=== PATIENT | male | born 1965 | race African-American/Black ===

== ENCOUNTER 2016-09-27 20:24 | Emergency (ER) | payer MEDICAID, SELFPAY ==
[~2016-09-27] VITALS: Ht 177.8 cm; Wt 100.2 kg
[2016-09-27 20:25] VITALS: BP 126/85
== END 2016-09-27 22:06 ==
LOC: ED 22:00
DX: R06.02 Shortness of breath (principal)
CPT/HCPCS: 93005

== ENCOUNTER 2017-04-17 20:23 | Emergency (ER) | payer MEDICAID ==
[~2017-04-17] VITALS: Ht 177.8 cm; Wt 105.5 kg
[2017-04-17 20:33] VITALS: BP 152/99
== END 2017-04-17 23:37 | disposition home or self-care (01) ==
LOC: ED 22:44
DX: K08.89 Other specified disorders of teeth and supporting structures (principal)
CPT/HCPCS: 70486; 99284

== ENCOUNTER 2017-04-18 00:18 | Emergency (ER) | payer MEDICAID ==
[~2017-04-18] VITALS: Ht 170.2 cm; Wt 103.5 kg
[2017-04-18 00:20] VITALS: BP 157/94
[2017-04-18] MEDS ORDERED: KETOROLAC 30 MG/1 ML IM ONE (01:00)
[2017-04-18] MEDS ORDERED: ZIPRASIDONE 20 MG INJ IM ONE ×2 (01:00→01:02)
[2017-04-18] MEDS ORDERED: KETOROLAC 30 MG/1 ML ONE (01:02)
== END 2017-04-18 01:19 | disposition home or self-care (01) ==
LOC: ED 00:35
DX: K08.89 Other specified disorders of teeth and supporting structures (principal)
CPT/HCPCS: 96372; 99284; J1885; J3486

== ENCOUNTER 2017-11-11 07:04 | Emergency (ER) | payer MEDICAID ==
[~2017-11-11] VITALS: Ht 180.3 cm; Wt 108.0 kg
[2017-11-11 07:08] VITALS: BP 130/80
[2017-11-11] MEDS ORDERED: ALBU5SOL6 INH (08:23)
[2017-11-11] MEDS ORDERED: KETOROLAC 30 MG/1 ML IVPush ONE (09:00)
[2017-11-11] MEDS ORDERED: SODIUM CHLORIDE FLUSH 10ML SYR IVF ONE (09:00)
[2017-11-11] MEDS ORDERED: METOCLOPRAMIDE 5 MG/ML, 2ML IVPush ONE (09:00)
[2017-11-11] MEDS ORDERED: DIPHENHYDRAMINE 50 MG/ML, 1ML IVPush ONE (09:00)
[2017-11-11] MEDS ORDERED: DIPHENHYDRAMINE 50 MG/ML, 1ML ONE (09:38)
[2017-11-11] MEDS ORDERED: KETOROLAC 30 MG/1 ML ONE (09:38)
[2017-11-11] MEDS ORDERED: METOCLOPRAMIDE 5 MG/ML, 2ML ONE (09:39)
== END 2017-11-11 11:05 | disposition home or self-care (01) ==
LOC: ED 10:54
DX: G44.89 Other headache syndrome (principal); J45.909 Unspecified asthma, uncomplicated
CPT/HCPCS: 96374; 96375; 99284; J1200; J1885; J2765

== ENCOUNTER 2019-06-18 12:44 | Emergency (ER) | payer MEDICAID ==
[~2019-06-18] VITALS: Ht 175.3 cm; Wt 110.9 kg
[~2019-06-18 12:44] MED LIST: ALBU5SOL6 INH
--- NOTE | 2019-06-18 13:20 | NUR ---
TRIAGE NILX1
--- NOTE | 2019-06-18 13:46 | NUR ---
nilx2
[2019-06-18 14:11] VITALS: BP 146/84
[2019-06-18] MEDS ORDERED: KETOROLAC 30 MG/1 ML IM ONE (14:30)
[2019-06-18] MEDS ORDERED: KETOROLAC 30 MG/1 ML ONE (14:47)
--- NOTE | 2019-06-18 15:50 | NUR ---
Patient given discharge instructions and they have confirmed that they understand the instructions. Patient ambulatory with steady gait.
== END 2019-06-18 15:51 | disposition home or self-care (01) ==
LOC: ED 15:35
DX: G89.11 Acute pain due to trauma (principal); M25.522 Pain in left elbow; M25.561 Pain in right knee; J45.909 Unspecified asthma, uncomplicated; Z87.891 Personal history of nicotine dependence
CPT/HCPCS: 73080; 73564; 96372; 99283; J1885

== ENCOUNTER 2020-09-24 22:44 | Emergency (ER) | payer MEDICAID ==
[~2020-09-24] VITALS: Ht 177.8 cm; Wt 111.2 kg
[2020-09-24 22:47] VITALS: BP 143/97
== END 2020-09-24 23:02 | disposition home or self-care (01) ==
LOC: ED 22:45
DX: M79.671 Pain in right foot (principal); M79.672 Pain in left foot
CPT/HCPCS: 99281

== ENCOUNTER 2020-09-25 10:07 | Emergency (ER) | payer MEDICAID ==
[~2020-09-25] VITALS: Ht 177.8 cm; Wt 113.1 kg
[2020-09-25 10:13] VITALS: BP 176/100
[2020-09-25] MEDS ORDERED: ALBUTEROL HFA 90 MCG/SPRAY INH ONE (10:30)
== END 2020-09-25 11:18 | disposition home or self-care (01) ==
LOC: ED 10:58
DX: J20.8 Acute bronchitis due to other specified organisms (principal); J45.909 Unspecified asthma, uncomplicated; Z20.822 Contact with and (suspected) exposure to COVID-19
CPT/HCPCS: 94640; 99283; U0003

== ENCOUNTER 2020-09-29 01:46 | Emergency (ER) | payer MEDICAID ==
[~2020-09-29] VITALS: Ht 177.8 cm; Wt 111.0 kg
[2020-09-29 01:48] VITALS: BP 112/85
== END 2020-09-29 02:15 | disposition home or self-care (01) ==
LOC: ED 02:12
DX: J45.30 Mild persistent asthma, uncomplicated (principal); R11.10 Vomiting, unspecified; R19.7 Diarrhea, unspecified; Z76.0 Encounter for issue of repeat prescription
CPT/HCPCS: 99281

== ENCOUNTER 2020-10-13 18:12 | Emergency (ER) | payer MEDICAID ==
[~2020-10-13] VITALS: Ht 170.2 cm; Wt 110.1 kg
[2020-10-13] MEDS ORDERED: ONDANSETRON ODT 4 MG ONE (20:19)
--- NOTE | 2020-10-13 20:24 | NUR ---
Pt given crackers and water and tolerating well. Offers no compalints at this time.
[2020-10-13] MEDS ORDERED: ONDANSETRON ODT 4 MG PO ONE (20:30)
[2020-10-13 20:34] VITALS: BP 138/94
== END 2020-10-13 20:37 | disposition home or self-care (01) ==
LOC: ED 20:06
DX: B34.9 Viral infection, unspecified (principal); R05 Cough; Z20.822 Contact with and (suspected) exposure to COVID-19; R11.2 Nausea with vomiting, unspecified; R19.7 Diarrhea, unspecified; J45.909 Unspecified asthma, uncomplicated
CPT/HCPCS: 71045; 99284; Q0162; U0003; U0005

== ENCOUNTER 2020-10-14 06:43 | Emergency (ER) | payer MEDICAID ==
[~2020-10-14] VITALS: Ht 179.1 cm; Wt 113.6 kg
--- NOTE | 2020-10-14 07:15 | NUR ---
PT SEEN 2 DAYS AGO FOR N/V/D, SYMPTOMS RESOLVED. PT SEEKING CLEARANCE TO GO BACK TO WORK. PT A&O, RESPS EVEN AND UNLABORED, URIAHS, JIMENAN.
--- NOTE | 2020-10-14 08:49 | NUR ---
preceptor RN note: order for venous blood gas cancelled per MD Ramirez, ordered in error. lab contacted by ISADORA Barnse, per GALILA, lab states covid speciman from yesterday is in lab and pending still. result to be posted when covid has resulted. dc orders received.
[2020-10-14 08:53] VITALS: BP 127/64
--- NOTE | 2020-10-14 09:20 | NUR ---
PT GIVEN DC INSTRUCTIONS, WORK NOTE PROVIDED WITH ISADORA OTERO THAT STATES PT MAY RETURN TO WORK ONCE COVID RESULTED NEGATIVE, PT INSTRUCTED TO REQUEST COVID RESULT FROM ED/MEDICAL RECORDS LATER TODAY. PT A&O, RESPS EVEN AND UNLABORED, AMBULATORY TO DC DESK WITH STEADY GAIT. ALL QUESTIONS ANSWERED.
== END 2020-10-14 09:21 | disposition home or self-care (01) ==
LOC: ED 07:03
DX: Z00.00 Encounter for general adult medical examination without abnormal findings (principal); R11.2 Nausea with vomiting, unspecified; R19.7 Diarrhea, unspecified; F17.210 Nicotine dependence, cigarettes, uncomplicated; J45.909 Unspecified asthma, uncomplicated
CPT/HCPCS: 99281; 99406

== ENCOUNTER 2020-10-21 04:41 | Emergency (ER) | payer MEDICAID | END 2020-10-21 04:53 | LOC: ED 04:45 | DX: R68.89 Other general symptoms and signs (principal); Z53.21 Procedure and treatment not carried out due to patient leaving prior to being seen by health care provider ==

== ENCOUNTER 2020-10-21 16:28 | Emergency (ER) | payer MEDICAID ==
[~2020-10-21] VITALS: Ht 177.8 cm; Wt 115.8 kg
[2020-10-21 16:32] VITALS: BP 155/103
--- NOTE | 2020-10-21 18:15 | NUR ---
Pt found sitting in room awaiting MD and electronic systems security assessment. States he was just placed in room a few mintues ago from lobby.
--- NOTE | 2020-10-21 18:47 | NUR ---
PT states he is only here for a return to work letter and does not have any acute problems.
--- NOTE | 2020-10-21 18:57 | NUR ---
Report given to AMELIA Ross and care transferred. PA at bedside with pt now.
== END 2020-10-21 19:37 | disposition home or self-care (01) ==
LOC: ED 17:06
DX: Z00.00 Encounter for general adult medical examination without abnormal findings (principal); J20.9 Acute bronchitis, unspecified; R11.2 Nausea with vomiting, unspecified; J45.909 Unspecified asthma, uncomplicated; R19.7 Diarrhea, unspecified; Z87.891 Personal history of nicotine dependence
CPT/HCPCS: 99281